=== PATIENT | female | born 1995 | race Caucasian/White ===

== ENCOUNTER 2019-09-11 | Emergency (ER) | payer OTHER | END 2019-09-11 17:25 | disposition home or self-care (01) | CPT/HCPCS: 36415; 76830; 80053; 81001; 84702; 85025; 85610; 85730; 86900; 86901; 87086; 93976; 99284 ==

== ENCOUNTER 2021-04-16 19:32 | Inpatient (IN) | payer OTHER ==
[2021-04-16] MEDS ORDERED: TERBUTALINE 1 MG/ML VIAL SQ PRN (19:54)
[2021-04-16] MEDS ORDERED: OXYTOCIN 10 UNIT/ML 1 ML VIAL IM PRN (19:54)
[2021-04-16] MEDS ORDERED: METHYLERGONOVINE 0.2 MG/ML 1 ML AMP IM PRN (19:54)
[2021-04-16] MEDS ORDERED: CARBOPROST TROMETHAMINE 250 MCG/ML 1 ML AMP IM PRN (19:54)
[2021-04-16] MEDS ORDERED: AMPICILLIN 2,000 MG in SODIUM CHLORIDE 0.9% 100 ML IVPB STA (19:54)
[2021-04-16] MEDS ORDERED: LIDOCAINE 0.5% (PF) 5 MG/ML (50 ML SDV) SQ PRN (19:54)
[2021-04-16] MEDS ORDERED: OXYTOCIN 30 UNITS/500 ML NS 30 UNIT in SALINE 1 500ML.BAG IV SCH (20:00)
[2021-04-16] MEDS: LACTATED RINGERS 1,000 ML IV SCH (20:15)
[2021-04-16 20:26] LABS: Basophils # (A) 0.1 k/uL (0-0.2); Basophils % (A) 0 %; Eosinophils # (A) 0.2 k/uL (0-0.7); Eosinophils % (A) 1 %; HCT 37.4 % (34.0-46.0); HGB 12.6 gm/dL (11.4-16.0); Lymphocytes # (A) 2.6 k/uL (1.0-4.8); Lymphocytes % (A) 17 %; MCHC 33.7 g/dL (31.0-37.0); MCV 86.1 fL (80.0-100.0); Mean Platelet Volume 8.7; Monocytes % (A) 7 %; Neutrophils # (A) 10.8 k/uL (1.3-7.7); Neutrophils % (A) 73 %; Platelet Count 249 k/uL (150-450); RBC 4.35 m/uL (3.80-5.40); RDW 14.9 % (11.5-15.5); WBC 14.7 k/uL (3.8-10.6)
--- NOTE | 2021-04-16 21:12 | P.HPOB ---
History of Present Illness H&P Date: 04/16/21 Chief Complaint: Leaking of fluid This patient is a pleasant 25-year-old 2 para 0 female estimated date of confinement 04/21/2021 estimated gestational age 39-2/7 weeks who presents to labor and delivery with complaints of gush of fluid at 6:30 this evening. Patient's care has been uncomplicated. She has been uncomfortable and requested induction this week she was scheduled for Cervidil on Saturday night. She now has gross rupture membranes for mild meconium-stained fluid and was 1-2 cm dilated. She did have a positive group B strep culture. Review of Systems Genitourinary: Reports Menstruation: Reports amenorrhea Past Medical History Past Medical History: No Reported History History of Any Multi-Drug Resistant Organisms: None Reported Past Surgical History: No Surgical Hx Reported Past Anesthesia/Blood Transfusion Reactions: No Reported Reaction Past Psychological History: Anxiety, Bipolar, Depression Smoking Status: Never smoker Past Alcohol Use History: None Reported Past Drug Use History: None Reported - Past Family History Father Family Medical History: Diabetes Mellitus Medications and Allergies Home Medications Medication Instructions Recorded Confirmed Type No Known Home Medications 04/16/21 04/16/21 History Allergies Allergy/AdvReac Type Severity Reaction Status Date / Time No Known Allergies Allergy Verified 04/16/21 19:35 Exam Vital Signs Temp Pulse Resp BP Pulse Ox 04/16/21 19:54 96.5 F L 99 18 137/86 96 04/16/21 19:46 96.5 F L 99 18 137/88 96 Intake and Output 04/16/21 04/16/21 04/16/21 06:59 14:59 22:59 Other: Weight 99.337 kg - OBG Physical Exam Abdomen: bowel sounds normal, no diffuse tenderness, no bruit present, no guarding noted, no hepatomegaly, no splenomegaly, no mass Vulva: both: normal Vagina: normal moisture, no discharge Cervix: no lesion (Cervix is 1-2 cm dilated 50% effaced), no discharge Uterus: enlarged (Height consistent with dates) Results blood work shows she is O positive, rubella immune, RPR nonreactive, HIV is nonreactive, hepatitis B is nonreactive, Glucola was normal, ultrasounds of shown normal growth and anatomy, group B strep was positive. Result Diagrams: 04/16/21 20:20 Abnormal Lab Results - Last 24 Hours (Table) 04/16/21 Range/Units 20:20 WBC 14.7 H (3.8-10.6) k/uL Neutrophils # 10.8 H (1.3-7.7) k/uL Assessment and Plan Assessment: This is a pleasant 25-year-old 2 para 0 female 39-2/7 weeks gestation with spontaneous rupture membranes, mild meconium-stained fluid, and positive group B strep culture. Plan is antibiotic prophylaxis and Pitocin augmentation of labor. This point we anticipate vaginal delivery. (1) 39 weeks gestation of Current Visit: Yes Status: Acute Code(s): Z3A.39 - 39 WEEKS GESTATION OF SNOMED Code(s): 22590479 (2) Spontaneous rupture of amniotic membranes Current Visit: Yes Status: Acute Code(s): YNR0692 - SNOMED Code(s): 551147628 (3) Group B streptococcal carriage complicating Current Visit: Yes Status: Acute Code(s): O99.820 - STREPTOCOCCUS B CARRIER STATE COMPLICATING SNOMED Code(s): 166274982937228 (4) Meconium in amniotic fluid Current Visit: Yes Status: Acute Code(s): P96.83 - MECONIUM STAINING SNOMED Code(s): 208301981
[2021-04-16] MEDS: BUTORPHANOL 1 MG/ML 1 ML VIAL IV PRN (22:45)
[2021-04-17] MEDS: AMPICILLIN 1,000 MG in SODIUM CHLORIDE 0.9% 50 ML IVPB SCH ×2 (00:31→11:36)
[2021-04-17] MEDS: BUTORPHANOL 1 MG/ML 1 ML VIAL IV PRN (00:31)
[2021-04-17] MEDS ORDERED: SODIUM CHLORIDE 0.9% 100 ML BAG ONE (01:52)
[2021-04-17] MEDS ORDERED: ROPIVACAINE 5MG/ML 20ML VIAL ONE (01:52)
[2021-04-17] MEDS ORDERED: fentaNYL (PF) 50 MCG/ML 5 ML AMP ONE (01:52)
[2021-04-17] MEDS ORDERED: ROPIVACAINE 100 MG, fentaNYL (PF). 200 MCG in SODIUM CHLORIDE 0.9% 76 ML EPIDURAL ONE (02:10)
[2021-04-17] MEDS ORDERED: diphenhydrAMINE 25 MG CAP PO PRN (04:08)
[2021-04-17] MEDS ORDERED: ACETAMINOPHEN TAB 325 MG TAB PO PRN (04:08)
[2021-04-17] MEDS ORDERED: LANOLIN CREAM 5 GM TUBE TOPICAL PRN (04:08)
[2021-04-17] MEDS ORDERED: bisacodyL 10 MG SUPP RECTAL PRN (04:08)
[2021-04-17] MEDS ORDERED: BENZOCAINE/MENTHOL SPRAY 1 GM/SPRAY AEROSOL TOPICAL PRN (04:08)
[2021-04-17] MEDS ORDERED: SENNOSIDES-DOCUSATE SODIUM 1 EACH TAB PO PRN (04:08)
[2021-04-17] MEDS ORDERED: diphenhydrAMINE 50 MG/ML 1 ML VIAL IVP PRN (04:08)
[2021-04-17] MEDS ORDERED: ZOLPIDEM 5 MG TAB PO PRN (04:08)
[2021-04-17] MEDS ORDERED: HYDROCORTISONE 2.5% RECTAL CREAM 30 GM TUBE RECTAL PRN (04:08)
[2021-04-17] MEDS ORDERED: SIMETHICONE 80 MG CHEWABLE PO PRN (04:08)
--- NOTE | 2021-04-17 04:13 | P.PROBDLV ---
Vaginal Delivery Note - . Vaginal Delivery Note: Normal vaginal delivery viable female Apgars 9 and 9 delivery time is 0333 hours. Please see dictated H&P for intimate details of this patient's admission. Brief summary this is a pleasant 25-year-old 2 para 0 female 39-2/7 weeks gestation admitted to labor and delivery with spontaneous rupture membranes at approximately 640 this evening. Patient had light meconium-stained fluid. heart tones are reactive. Patient had a positive group B strep culture for this reason is given IV antibiotics. Labor is augmented with Pitocin and progresses quickly. She does receive an epidural for pain control with good relief. Patient gets to complete pushes the head to the perineum. At this time we do have some bradycardia for this reason I infiltrate the posterior perineum and a midline episiotomy is made. This immediately facilitates delivery we have controlled delivery of infant's head over the perineum. Mouth and nares are bulb suctioned. 's position straight occiput anterior presentation. There is no evidence of nuchal cord. With gentle downward traction within the anterior and posterior shoulder and rest this 's body. This is a vigorous viable female Apgars are 9 and 9 delivery time was 0333 hours. After delivery of the the infant is laid on the mother's abdomen. After the cord is done pulsate is doubly clamped and cut. Placenta is then spontaneously delivered intact. Inspection of perineum shows a second-degree laceration which is repaired with 3-0 Vicryl usual fashion and excellent reapproximation is noted. All counts are correct 3. There are no complications. and mother are stable delivery room. Estimated blood loss is approximately 100 mL.
[2021-04-17] MEDS ORDERED: OXYTOCIN 30 UNITS/500 ML NS 30 UNIT in SALINE 1 500ML.BAG IV SCH (04:15)
[2021-04-17] MEDS: IBUPROFEN 600 MG TAB PO PRN ×3 (04:25→23:36)
--- NOTE | 2021-04-17 06:12 | P.MSEPDOC ---
Presenting Problems - Arrival Data Date of Arrival on Unit: 04/16/21 Time of Arrival on Unit: 19:54 Mode of Transport: Ambulatory - Complaint OB-Reason for Admission/Chief Complaint: Rule Out SROM Comment: Yellow fluid, 1840 Medical History - Information : 2 Para: 0 Term: 0 : 0 Abortions: Spontaneous or Elective: 0 Number of Living Children: 0 - Gestational Age Gestational Age by DIANE (wks/days): 39 Weeks and 3 Days Review of Systems - Review of Systems Constitutional: No problems Breast: No problems ENT: No problems Cardiovascular: No problems Respiratory: No problems Gastrointestinal: No problems Genitourinary: No problems Musculoskeletal: No problems Neurological: No problems Skin: No problems Vital Signs - Temperature Temperature: 96.2 F Temperature Source: Temporal Artery Scan - Pulse Right Brachial Pulse Rate: 71 Pulse Assessment Method: Automatic Cuff - Respirations Respiratory Rate: 16 Oxygen Delivery Method: Room Air - Blood Pressure Right Arm Blood Pressure: 110/62 Blood Pressure Mean: 78 Blood Pressure Source: Automatic Cuff Medical Screen Scoring - Cervical Exam Dilation (cm): 1 Effacement (%): 50 Station: -2 Membranes: Ruptured - Uterine Contractions Frequency From (mins): 2 Frequency To (mins): 5 Duration From (seconds): 40 Duration To (seconds): 60 Intensity: Mild Resting: Soft to palpation - Assessment - Baby A Baseline FHR: 155 Heart Rate - NICHD Category: Category I (Normal) Physician Notification - Physician Notified Physician Notified Date: 04/16/21 Physician Notified Time: 19:54 Physician: Shane Kaminski - Notification Comment Comment: Admit for labor, start antibiotics Maternal Triage Index - Maternal Triage Index Presenting for scheduled procedure w/no complaint: No - Stat/Priority 1 Stat Priority 1: No - Urgent/Priority 2 Urgent Priority 2: No - Prompt/Priority 3 Prompt Priority 3: No - Non-Urgent/Priority 4 Non-Urgent Priority 4: Yes Criteria Met for Priority 4: SROM 1840 Disposition - Disposition OB Disposition: Admit I agree with the RN Medical Screening Exam: Yes Case reviewed; plan agreed upon as documented in EMR&OBIX.: Yes Diagnosis: ENCOUNTER FOR FULL-TERM UNCOMPLICATED DELIVERY
[2021-04-17] MEDS: LACTATED RINGERS 1,000 ML IV SCH (11:35)
--- NOTE | 2021-04-18 06:25 | P.PNOBGVD ---
Subjective - Subjective Patient reports: Reports appetite normal, Reports voiding normally, Reports pain well controlled, Reports ambulating normally : doing well Objective - Latest Vital Signs Latest vital signs: Vital Signs Temp Pulse Resp BP Pulse Ox 04/17/21 23:35 97.6 F 87 18 131/89 95 04/17/21 16:00 98.9 F 90 16 123/84 04/17/21 12:00 98.2 F 72 16 128/77 04/17/21 07:50 98.6 F 64 16 127/86 Intake and Output 04/17/21 04/17/21 04/18/21 14:59 22:59 06:59 Other: # Voids 2 2 1 - Exam Lungs: bilateral: normal Chest: Normal S1, Normal S2 Extremities: Present: normal Abdomen: Present: normal appearance, soft Uterus: Present: normal, firm Assessment and Plan Assessment: day #1. Patient is resting without complaints wishes to go home. Vital signs are stable she's afebrile. Uterus is firm nontender and she is having normal lochia. I impression this is a normal course. Plan is to continue routine care discharge home later today. (1) 39 weeks gestation of Current Visit: Yes Status: Acute Code(s): Z3A.39 - 39 WEEKS GESTATION OF SNOMED Code(s): 93843528 (2) Spontaneous rupture of amniotic membranes Current Visit: Yes Status: Acute Code(s): LNE8684 - SNOMED Code(s): 664169238 (3) Group B streptococcal carriage complicating Current Visit: Yes Status: Acute Code(s): O99.820 - STREPTOCOCCUS B CARRIER STATE COMPLICATING SNOMED Code(s): 506882290681638 (4) Meconium in amniotic fluid Current Visit: Yes Status: Acute Code(s): P96.83 - MECONIUM STAINING SNOMED Code(s): 040594792
--- NOTE | 2021-04-18 06:27 | P.DS ---
Providers Date of admission: 04/16/21 19:46 Expected date of discharge: 04/18/21 Attending physician: Shane Kaminski Primary care physician: Stated None - Discharge Diagnosis(es) (1) 39 weeks gestation of Current Visit: Yes Status: Acute (2) Spontaneous rupture of amniotic membranes Current Visit: Yes Status: Acute (3) Group B streptococcal carriage complicating Current Visit: Yes Status: Acute (4) Meconium in amniotic fluid Current Visit: Yes Status: Acute Hospital Course: Please see dictated H&P for intimate details of this patient's admission. Brief summary is a pleasant 25-year-old 2 para 0 female 39-3/7 weeks gestation admitted to labor and delivery with spontaneous rupture membranes in early labor. Patient quickly goes on have a vaginal delivery viable female infant. Please see dictated delivery note. day 1 patient doing well wishes to go home. Patient's felt to be stable for discharge home follow up with me in 6 weeks. Procedures: Normal spontaneous vaginal delivery Patient Condition at Discharge: Good Plan - Discharge Summary New Discharge Prescriptions: No Action No Known Home Medications Discharge Medication List No Known Home Medications 04/16/21 [History] Follow up Appointment(s)/Referral(s): Shane Kaminski MD [STAFF PHYSICIAN] - 1 Week Patient Instructions/Handouts: Vaginal Delivery (DC) Activity/Diet/Wound Care/Special Instructions: No intercourse or anything per vagina for 6 weeks. Please call if any fever, chills, excessive vaginal bleeding, and/or abdominal pain. Discharge Disposition: HOME SELF-CARE
[2021-04-18] MEDS: IBUPROFEN 600 MG TAB PO PRN (08:39)
[2021-04-18 09:13] VITALS: RESP 16; TEMP 98
[2021-04-18 15:10] VITALS: BP 132/83; PULSE 74
== END 2021-04-18 16:45 | disposition home or self-care (01) | DRG 807 ==
LOC: FBPOP 19:32 → 4FBP 19:46
PROVIDERS: ADMIT Obstetrics & Gynecology; ATTEND Obstetrics & Gynecology
PROC: 10E0XZZ Delivery of Products of Conception, External Approach (ICD-10-PCS; principal; 2021-04-17)
PROC: 0KQM0ZZ Repair Perineum Muscle, Open Approach (ICD-10-PCS; 2021-04-17)
DX: O99.824 Streptococcus B carrier state complicating childbirth (principal); Z37.0 Single live birth; F31.9 Bipolar disorder, unspecified; O70.1 Second degree perineal laceration during delivery; O76 Abnormality in fetal heart rate and rhythm complicating labor and delivery; O77.0 Labor and delivery complicated by meconium in amniotic fluid; O99.344 Other mental disorders complicating childbirth; Z3A.39 39 weeks gestation of pregnancy; Z83.3 Family history of diabetes mellitus
CPT/HCPCS: 59025; 84112; 85025; 86850; 86900; 86901; 99213

== ENCOUNTER → 2022-05-17 | Outpatient (CLI) | payer OTHER | END | disposition home or self-care (01) | LOC: LABWHC1 11:43 | PROVIDERS: ATTEND Obstetrics & Gynecology | DX: N92.6 Irregular menstruation, unspecified (principal) | CPT/HCPCS: 36415; 84702 ==